=== PATIENT | female | born 1985 | race American Indian/Alaskan Native ===

== ENCOUNTER 2016-07-13 07:47 | Emergency (ER) | payer MEDICAID ==
[2016-07-13 08:47] VITALS: BP 111/66
[2016-07-13 09:07] LABS: Basophils % (Auto) 0.7 % (0.0-1.8); Eosinophils % (Auto) 0.6 % (0.0-4.3); Hemoglobin 12.7 gm/dl (10.1-14.3); Mean Corpuscular HGB Conc 33 % (30-34); Mean Corpuscular Hemoglobin 30 pg (28-32); Mean Corpuscular Volume 91 fl (79-97); Platelet Count 277 K/mm3 (140-440); Red Cell Distribution Width 13.5 % (13.2-15.2)
[2016-07-13 09:28] LABS: Alanine Aminotransferase 10 units/L (7-56); Albumin 3.9 g/dL (3.9-5); Albumin/Globulin Ratio 1.1 %; Alkaline Phosphatase 62 units/L (35-129); Anion Gap 16 mmol/L; BUN/Creatinine Ratio 11.25; Bilirubin,Total 0.3 mg/dL (0.1-1.2); Blood Urea Nitrogen 9 mg/dL (7-17); Calcium 9.1 mg/dL (8.4-10.2); Carbon Dioxide 24 mmol/L (22-30); Chloride 101.5 mmol/L (98-107); Glucose 128 mg/dL (65-100); Lipase 36 units/L (13-60); Potassium 4.2 mmol/L (3.6-5.0); Sodium 137 mmol/L (137-145); Total Protein 7.3 g/dL (6.3-8.2)
[2016-07-13 10:20] LABS: Bacteria,Urine 1+ /HPF (Negative); Bilirubin,Urine NEG (Negative); Blood,Urine MOD (Negative); Ketones,Urine NEG (Negative); Leukocyte Esterase,Urine MOD (Negative); Mucus,Urine FEW /HPF; Nitrite,Urine NEG (Negative); Protein,Urine <15 mg/dL mg/dL (Negative); Urobilinogen,Urine < 2.0 mg/dL (<2.0)
--- NOTE | 2016-07-15 10:17 | ED Elopement Review ---
ED Pt Elopement review - Results review Lab results: Laboratory Tests 07/13/16 07/13/16 07/13/16 08:54 08:54 08:54 WBC 8.0 RBC 4.30 Hgb 12.7 Hct 39.0 MCV 91 MCH 30 MCHC 33 RDW 13.5 Plt Count 277 Lymph % (Auto) 26.4 Weld % (Auto) 5.8 Eos % (Auto) 0.6 Baso % (Auto) 0.7 Lymph # 2.1 Weld # 0.5 Eos # 0.1 Baso # 0.1 Seg Neutrophils % 66.5 Seg Neutrophils # 5.3 Sodium 137 Potassium 4.2 Chloride 101.5 Carbon Dioxide 24 Anion Gap 16 BUN 9 Creatinine 0.8 Estimated GFR > 60 BUN/Creatinine Ratio 11.25 Glucose 128 H Calcium 9.1 Total Bilirubin 0.3 AST 14 ALT 10 Alkaline Phosphatase 62 Total Protein 7.3 Albumin 3.9 Albumin/Globulin Ratio 1.1 Lipase 36 HCG, Quant 1364 H Urine Color Urine Turbidity Urine pH Ur Specific [place] Urine Protein Urine Glucose (UA) Urine Ketones Urine Blood Urine Nitrite Urine Bilirubin Urine Urobilinogen Ur Leukocyte Esterase Urine WBC (Auto) Urine RBC (Auto) U Epithel Cells (Auto) Urine Bacteria (Auto) Urine Mucus 07/13/16 09:43 WBC RBC Hgb Hct MCV MCH MCHC RDW Plt Count Lymph % (Auto) Weld % (Auto) Eos % (Auto) Baso % (Auto) Lymph # Weld # Eos # Baso # Seg Neutrophils % Seg Neutrophils # Sodium Potassium Chloride Carbon Dioxide Anion Gap BUN Creatinine Estimated GFR BUN/Creatinine Ratio Glucose Calcium Total Bilirubin AST ALT Alkaline Phosphatase Total Protein Albumin Albumin/Globulin Ratio Lipase HCG, Quant Urine Color Yellow Urine Turbidity Clear Urine pH 5.0 Ur Specific [place] 1.019 Urine Protein <15 mg/dl Urine Glucose (UA) Neg Urine Ketones Neg Urine Blood Mod Urine Nitrite Neg Urine Bilirubin Neg Urine Urobilinogen < 2.0 Ur Leukocyte Esterase Mod Urine WBC (Auto) 9.0 H Urine RBC (Auto) 8.0 U Epithel Cells (Auto) 3.0 Urine Bacteria (Auto) 1+ Urine Mucus Few - Call Back decision Pt Call Back Decision: Call pt to return to [facility] (return for u/s if you have not f/u. need to r/o ectopic)
== END 2016-07-13 13:38 | disposition left against medical advice (07) ==
LOC: ED 07:47
DX: O26.891 Other specified pregnancy related conditions, first trimester (principal); R10.9 Unspecified abdominal pain; Z3A.01 Less than 8 weeks gestation of pregnancy
CPT/HCPCS: 36415; 80053; 81001; 83690; 84702; 85025